=== PATIENT | male | born 1985 ===

== ENCOUNTER 2020-10-23 08:53 | Outpatient (REF) | payer OTHER, SELFPAY ==
[2020-10-23 11:17] LABS: Glucose Urine UA NEG (NEG); Leukocyte Esterase Urine NEG (NEG); Nitrite Urine NEG (NEG); Specific Gravity - Urine 1.025 (1.005-1.025); Urine Blood NEG (NEG); Urine Ketones NEG (NEG); Urine Protein NEG (NEG-TRACE)
[2020-10-23 11:26] LABS: Appearance Urine CLEAR; Color Urine YELLOW
[2020-10-23 12:01] LABS: RBC Urine 0 /HPF (0); WBC Urine 0 /HPF (0-4)
[2020-10-23 12:01] LABS: Alanine Aminotransferase 37 U/L (0-40); Albumin Level 4.9 g/dL (3.5-5.0); Alkaline Phosphatase 63 U/L (39-117); Anion Gap 13 (12-20); Aspartate Amino Transferase 30 U/L (5-37); Bilirubin Total 0.7 mg/dL (0.0-1.0); Blood Urea Nitrogen 16 mg/dL (9-16); Calcium 9.1 mg/dL (8.4-10.2); Carbon Dioxide 27 mmol/L (22-29); Chloride 104 mmol/L (96-108); Cholesterol 198 mg/dL; Estimated Glomerular Filt Rate > 60; Glucose Fasting 90 mg/dL (60-99); HDL Cholesterol 36 mg/dL; LDL Cholesterol Calculated 141 mg/dl; Potassium 4.7 mmol/L (3.3-5.1); Sodium 139 mmol/L (135-145); Total Protein 7.4 g/dL (6.5-8.0); Triglycerides 106 mg/dL
[2020-10-23 12:24] LABS: TSH reflex Free T4 1.53 uIU/mL (0.32-4.0)
== END 2020-10-23 08:54 | disposition home or self-care (01) ==
LOC: HO.HMGCLDS 08:53
PROVIDERS: PCP Nurse Practitioner Family; Visit Provider Nurse Practitioner Family
DX: Z00.00 Encounter for general adult medical examination without abnormal findings (principal)
CPT/HCPCS: 36415; 80053; 80061; 81001; 84443

== ENCOUNTER 2021-07-03 16:50 | Emergency (ER) | payer OTHER, SELFPAY ==
--- NOTE | ~2021-07-03 | CT_ITS ---
EXAMINATION: CT HEAD WITH/WITHOUT CONTRAST CLINICAL INFORMATION: Right-sided facial pain and numbness. COMPARISON: None TECHNIQUE: Contiguous axial imaging was performed from the skull base to vertex before and after the administration of 85 mL of Omnipaque [address] examination was performed using dose optimization techniques as appropriate, variously including the following: *Automated exposure control *Adjustment of mA and/or kV according to patient size (this includes techniques or standardized protocols for targeted exams where dose is matched to indication/reason for exam; i.e. extremities or head) *Use of iterative reconstruction technique DLP: 1506 mGy-cm FINDINGS: No intracranial hemorrhage, tumors or acute infarcts identified. The ventricles and sulci are normal in size and configuration. No abnormal enhancement of the brain parenchyma. Grossly normal intraluminal opacification of the major intrarenal dural sinuses. The orbits and globes are partially included in the image [id number] and demonstrate no abnormalities. No significant opacification of the visualized paranasal sinuses, mastoid air cells and middle ear cavities. CT/CT head/brain wo/w con IMPRESSION: Normal unenhanced and IV contrast-enhanced CT the head.
[2021-07-03 18:34] VITALS: BP 139/90; PULSE 109; RESP 18; TEMP 36.8; O2SAT 98; BMI 32.5
--- NOTE | 2021-07-03 19:34 | ED_ITS ---
HPI - Neuro Symptoms/Deficit General Chief Complaint: Neuro Symptoms/Deficit Stated Complaint: ?Shingles Source: patient Mode of arrival: ambulatory Limitations: no limitations History of Present Illness HPI Narrative: 36-year-old male presents from urgent care after being evaluated for right-sided facial pain and right leg weakness. Stated this pain started approximately 5 days ago and feels quite similar to shingles although he does not have a vesicular rash. He did have shingles approximately 2 months ago on the left side of his back. The pain does not cross the midline is in the middle of his forehead radiates to the right side and involves the eye. Onset (ago): day(s) (5) Location: right face and right leg History of same: No Severity: moderate Quality: tingling and burning Relieving factors: none Context: gradual onset On Anticoagulants: No Associated symptoms: denies other symptoms Treatments Prior to Arrival: none Related Data Previous Rx's Medication Instructions Recorded valacyclovir 1 gram tablet 1,000 mg PO TID 7 Days #21 tab 07/03/21 Allergies Allergy/AdvReac Type Severity Reaction Status Date / Time No Known Allergies Allergy Verified 07/03/21 18:34 Review of Systems Review of Systems: Constitutional: No Fever, No Chills ENT/Mouth: Right-side of facial burning pain, No Ear Pain, No Hoarseness, No sore throat Eyes: Right Eye Pain, No Swelling, No Redness, No Foreign Body Cardiovascular: No Chest Pain, No SOB Respiratory: No Cough, No Dyspnea Gastrointestinal: No Nausea, No Vomiting, No Diarrhea, No abdominal Pain Genitourinary: No Dysuria, No Hematuria Musculoskeletal: No joint pain, No Myalgias, No Joint Swelling Skin: No Skin lacerations, No rash Neuro: Positive right lower extremity Weakness, No Numbness, No Paresthesias, N o Loss of Consciousness, No Dizziness, No Headache Psych: No Anxiety/Panic, No Depression Heme/Lymph: no easy bruising, no Lymphadenopathy Endocrine: No Polyuria, No Polydipsia Yes all other systems are reviewed and are negative [facility] Past Medical History Attestation statement: The following information was validated with the patient. Source: old records reviewed Medical History Shingles Family History Family History Father Diabetes FH: HTN (hypertension) Mother Asthma Social History Social History Alcohol intake: current Alcohol intake frequency: holidays/special occasions only Advance Directives: No Advance Directives Information Provided: Yes Physical Exam Vital Signs: Vital Signs: Last Vital Signs Temp 98.3 F 07/03/21 18:34 Pulse 109 H 07/03/21 18:34 Resp 18 07/03/21 18:34 BP 139/90 H 07/03/21 18:34 Pulse Ox 98 07/03/21 18:34 Body Mass Index 32.5 Appearance: Alert. Oriented X3. No acute distress. Head: Normal external exam. Normocephalic. Atraumatic. No [place] signs noted. No raccoon eyes noted Eyes: PERRLA. EOMI. Conjunctiva and sclera normal. Eyelids normal. ENT: TM's Normal. Pharynx normal. Uvula midline. Moist mucous membranes. No trismus noted. No drooling noted. No muffled voice noted. Neck: Normal inspection. Neck supple. No adenopathy. Thyroid Normal. No meningeal signs. No neck mass noted. CVS: Normal heart rate and rhythm. Heart sound normal. No murmurs noted. Pulses equal to all extremities. Respiratory: No respiratory distress. Painless inspiration. Breath sounds normal. No wheezes/rales/rhonchi noted. Chest nontender. No accessory muscle usage noted or decreased air movement noted. Abdomen: Soft and nontender. Bowel sounds normal in all 4 quadrants. No distention noted. No organomegaly noted. No visible injury noted. Back: No CVA tenderness. Full range of motion noted. Skin: Skin warm and dry. Normal skin color. Normal skin turgor. No rashes/lesions/lacerations noted. Extremities: No lower extremity edema. Extremities exhibit normal range of motion. Extremities nontender. Neuro: cranial nerves 2-12 intact, no focal neural deficits, strength 5/5 to all extremities, No motor deficit. No sensory deficit. Patellar Reflexes normal. Eyes: General: appearance normal, both eyes and all related structures Visual Fall: normal visual fall by confrontation Alignment and Position: alignment normal and position normal Periorbital: periorbital findings normal Eyelids: Yes eyelids normal Conjunctivae: conjunctivae normal Sclerae: sclerae normal Corneas: corneas normal and fluorescein used Pupils: Equal, round and reactive pupils present, Pupils normal by confrontation and Pupil ac commodation reflex normal EOM: EOMs intact bilaterally Direct Ophthalmoscopy: normal light reflex, no photophobia, no papilledema, fundi normal bilaterally and anterior chamber normal Neuro: Cranial nerves: Yes Equal, round and reactive pupils present Course Course Course Narrative: 36-year-old male presents the emergency department for right- sided facial burning pain and right leg weakness. States that his right leg gives out on him. This has been occurring for the past 5 days. NIH stroke scal e performed by this SHEET WRITER while patient was waiting in the emergency department waiting room. Scale was 0. Patient neurovascularly intact, cranial nerve 2-12 intact, gait well balanced well coordinated. Low likelihood of CVA at this time. Patient presents for evaluation after being referred to emergency department by urgent care. Stated that he seen urgent care and they were concerned that he may have shingles on his brain because he does not have a visible vesicular rash. He did have shingles approximately 2 months ago to the left side of his back. Patient negative for [place] Syl[place], trigeminal neuralgia, and giant cell arteritis. 7:30 p.m. I discussed this case with Dr Escalante, patient does not have any acute vision changes, no fluorescein uptake. Retina is intact. Patient will follow-up in the office on Tuesday. CT scan negative for acute findings requiring emergent intervention. Will treat with antiviral, have patient follow-up with primary care physician. Patient verbalized understanding of and agrees to plan of care discharge home. Consultations Consultation #1: Ava Time: 19:30 MDM - Neuro Symptoms/Deficit MDM Narrative Medical decision making narrative: Shingles Differential Diagnosis Differential diagnosis: Likely peripheral neuropathy, cerebrovascular accident and multiple sclerosis Medical Records Attestation: I reviewed the patient's medical records. Lab Data Attestation: I reviewed the patient's lab results. Result diagrams: 07/03/21 20:00 07/03/21 20:00 Labs: Lab Results 07/03/21 07/03/21 07/03/21 Range/Units 20:00 20:00 20:00 WBC 6.0 (4.8-10.8) X10*3/uL RBC 5.47 (4.60-5.80) X10*6/uL Hgb 16.5 (14.0-18.0) g/dl Hct 47.5 (42-52) % MCV 86.8 (80-98) fL MCH 30.2 (27.0-33.0) pg MCHC 34.7 (31.0-36.0) g/dl RDW 12.3 (11.0-16.0) % Plt Count 244 (160-400) X10*3/uL MPV 8.9 L (9.4-12.4) fL Immature Gran % (Auto) 0.2 (0.0-0.4) % Neut % (Auto) 68.1 (45-73) % Lymph % (Auto) 23.7 (20-40) % Potter % (Auto) 7.5 (2-11) % Eos % (Auto) 0.2 (0-4) % Baso % (Auto) 0.3 (0-2) % Lymph # (Auto) 1.4 (1.2-4.9) X10*3/uL Potter # (Auto) 0.5 (0.1-1.2) X10*3/uL Eos # (Auto) 0.0 (0.0-0.4) X10*3/uL Baso # (Auto) 0.0 (0.0-0.2) X10*3/uL Abs Immat Gran (auto) 0.01 (0.00-0.03) X10*3/uL Absolute Neuts (auto) 4.1 (2.0-8.3) X10*3/uL Absolute Nucleated RBC 0.000 (0.0-0.012) X10*3/uL Nucleated RBC % (auto) 0.0 (0.0-0.2) /100WBC ESR 1 (0-15) MM/HR Sodium 142 (135-145) mmol/L Potassium 4.1 (3.3-5.1) mmol/L Chloride 107 (96-108) mmol/L Carbon Dioxide 26 (22-29) mmol/L Anion Gap 13 (12-20) BUN 16 (9-16) mg/dL Creatinine 0.85 (0.5-1.4) mg/dL Estim Creat Clear Calc 151.6 Estimated GFR > 60 Random Glucose 100 (60-115) mg/dL Calcium 9.9 D (8.4-10.2) mg/dL C-Reactive Protein 0.11 (< or = 0.50) mg/dL Imaging Data CT head with and without: Attestation: I personally reviewed and interpreted this imaging study as follows: Radiologist's impression: EXAMINATION: CT HEAD WITH/WITHOUT CONTRAST CLINICAL INFORMATION: Right-sided facial pain and numbness.? COMPARISON: None? ? TECHNIQUE: Contiguous axial imaging was performed from the skull base to vertex before and after the administration of 85 mL of Omnipaque [address] examination was performed using dose optimization techniques as appropriate, variously including the following: *Automated exposure control *Adjustment of mA and/or kV according to patient size (this includes techniques or standardized protocols for targeted exams where dose is matched to indication/reason for exam; i.e. extremities or head) *Use of iterative reconstruction technique DLP: 1506 mGy-cm FINDINGS: No intracranial hemorrhage, tumors or acute infarcts identified. The ventricles and sulci are normal in size and configuration. No abnormal enhancement of the brain parenchyma. Grossly normal intraluminal opacification of the major intrarenal dural sinuses. The orbits and globes are partially included in the image [id number] and demonstrate no abnormalities. No significant opacification of the visualized paranasal sinuses, mastoid air cells and middle ear cavities. CT/CT head/brain wo/w con IMPRESSION: Normal unenhanced and IV contrast-enhanced CT the head.? NIH Stroke Scale Internal: Initial- Upon Arrival Time: 18:00 Level of Consciousness: Alert Level of Consciousness Questions: Answers both questions correctly Level of Consciousness Commands: Performs both tasks correctly Best Gaze: Normal Visual: No visual loss Facial Palsy: Normal Motor Arm (Right): No drift Motor Arm (Left): No drift Motor Leg (Right): No drift Motor Leg (Left): No drift Limb Ataxia: Absent Sensory: Normal Best Language: No aphasia Dysarthia: Normal Extinction and Inattention: No abnormality Score: 0 Discharge Plan Discharge Clinical Impression: Rash and nonspecific skin eruption Shingles Qualifiers: Herpes zoster complications: with ocular involvement Herpes zoster ocular complication detail: unspecified herpes zoster eye disease Qualified Code(s): B02.30 - Zoster ocular disease, unspecified Patient Disposition: Home, Self-Care Instructions: Shingles (ED) Additional Instructions: You were evaluated for unilateral right-sided facial pain with eye involvement. Your pain is suspicious for shingles. You must follow-up with Ophthalmology on Tuesday. If vision gets worse you must present to emergency department that has ophthalmology on-call. Please take Valacyclovir 1000 mg 3 times a day for the next 7 days. Thank you for choosing this emergency department for evaluation. Please follow-up with primary care physician as needed. Return to the emergency department for any new, concerning, or worsening symptoms. Prescriptions: New valacyclovir 1 gram tablet 1,000 mg PO TID 7 Days Qty: 21 RF: 0 Referrals: Bentley Escalante [Physician] - 2 days (Please follow-up on Tuesday.) Interventions: ED Discharge Assessment Last Done: 07/03/21 22:08 Discharge Date/Time: 07/03/21 22:20 Print Language: Lao
[2021-07-03 20:07] LABS: MANUAL DIFF FLAG NO
[2021-07-03 20:08] LABS: Basophils Percent Auto 0.3 % (0-2); Eosinophils Percent Auto 0.2 % (0-4); Hematocrit 47.5 % (42-52); Hemoglobin 16.5 g/dl (14.0-18.0); Imm Gran Abs Auto 0.01 X10*3/uL (0.00-0.03); Imm Gran Pct Auto 0.2 % (0.0-0.4); Lymphocytes Absolute Auto 1.4 X10*3/uL (1.2-4.9); Lymphocytes Percent Auto 23.7 % (20-40); Mean Corpuscular HGB Conc 34.7 g/dl (31.0-36.0); Mean Corpuscular Hemoglobin 30.2 pg (27.0-33.0); Mean Corpuscular Volume 86.8 fL (80-98); Mean Platelet Volume 8.9 fL (9.4-12.4); Monocytes Absolute Auto 0.5 X10*3/uL (0.1-1.2); Monocytes Percent Auto 7.5 % (2-11); Neutrophils Absolute Auto 4.1 X10*3/uL (2.0-8.3); Neutrophils Percent Auto 68.1 % (45-73); Platelet Count 244 X10*3/uL (160-400); Red Blood Count 5.47 X10*6/uL (4.60-5.80); Red Cell Distribution Width 12.3 % (11.0-16.0)
[2021-07-03 20:23] LABS: Anion Gap 13 (12-20); Blood Urea Nitrogen 16 mg/dL (9-16); C Reactive Protein 0.11 mg/dL (< or = 0.50); Calcium 9.9 mg/dL (8.4-10.2); Carbon Dioxide 26 mmol/L (22-29); Chloride 107 mmol/L (96-108); Creatinine Clr Calc Pharmacy 151.6; Estimated Glomerular Filt Rate > 60; Glucose Random 100 mg/dL (60-115); Potassium 4.1 mmol/L (3.3-5.1); Sodium 142 mmol/L (135-145)
[2021-07-03 20:55] LABS: Erythrocyte Sedimentation Rate 1 MM/HR (0-15)
[2021-07-03] MEDS: iohexoL 350 MG/ML 100 ML INFUS..BTL IV (21:05)
[2021-07-03] MEDS: Fluorescein Sodium STRIP 1 STRIP EYE-RIGHT (21:11)
== END 2021-07-03 22:20 | disposition home or self-care (01) ==
PROVIDERS: Nurse Practitioner Family; Emergency Provider Emergency Medicine; PCP Nurse Practitioner Family
DX: B02.30 Zoster ocular disease, unspecified (principal); R21 Rash and other nonspecific skin eruption; R29.700 NIHSS score 0; M54.50 Low back pain, unspecified; R51.9 Headache, unspecified; Z79.899 Other long term (current) drug therapy
CPT/HCPCS: 36415; 70470; 80048; 85025; 85652; 86140; 99284; Q9967

== ENCOUNTER 2021-07-13 08:22 | Outpatient (REF) | payer OTHER, SELFPAY ==
[2021-07-13 11:27] LABS: MANUAL DIFF FLAG NO
[2021-07-13 11:35] LABS: Basophils Percent Auto 0.5 % (0-2); Eosinophils Percent Auto 0.3 % (0-4); Hematocrit 45.8 % (42-52); Hemoglobin 15.5 g/dl (14.0-18.0); Lymphocytes Absolute Auto 1.2 X10*3/uL (1.2-4.9); Lymphocytes Percent Auto 30.2 % (20-40); Mean Corpuscular HGB Conc 33.8 g/dl (31.0-36.0); Mean Corpuscular Hemoglobin 30.1 pg (27.0-33.0); Mean Corpuscular Volume 88.9 fL (80-98); Mean Platelet Volume 9.5 fL (9.4-12.4); Monocytes Absolute Auto 0.2 X10*3/uL (0.1-1.2); Monocytes Percent Auto 5.2 % (2-11); Neutrophils Absolute Auto 2.5 X10*3/uL (2.0-8.3); Neutrophils Percent Auto 63.8 % (45-73); Platelet Count 243 X10*3/uL (160-400); Red Blood Count 5.15 X10*6/uL (4.60-5.80); White Blood Count 3.9 X10*3/uL (4.8-10.8)
[2021-07-13 12:15] LABS: Alanine Aminotransferase 21 U/L (0-40); Albumin Level 4.7 g/dL (3.5-5.0); Alkaline Phosphatase 54 U/L (39-117); Anion Gap 14 (12-20); Aspartate Amino Transferase 22 U/L (5-37); Bilirubin Total 0.7 mg/dL (0.0-1.0); Blood Urea Nitrogen 16 mg/dL (9-16); C Reactive Protein 0.11 mg/dL (< or = 0.50); Calcium 9.5 mg/dL (8.4-10.2); Carbon Dioxide 26 mmol/L (22-29); Chloride 107 mmol/L (96-108); Estimated Glomerular Filt Rate > 60; Glucose Random 103 mg/dL (60-115); Potassium 4.1 mmol/L (3.3-5.1); Sodium 143 mmol/L (135-145)
[2021-07-13 12:16] LABS: TSH reflex Free T4 1.35 uIU/mL (0.32-4.0)
[2021-07-13 13:08] LABS: Erythrocyte Sedimentation Rate 1 MM/HR (0-15)
== END 2021-07-13 08:23 | disposition home or self-care (01) ==
LOC: HO.HMGCLDS 08:22
PROVIDERS: PCP Nurse Practitioner Family; Visit Provider Nurse Practitioner Family
DX: R51.9 Headache, unspecified (principal)
CPT/HCPCS: 36415; 80053; 84443; 85025; 85652; 86140

== ENCOUNTER 2021-10-22 11:37 | Outpatient (REF) | payer OTHER, SELFPAY ==
[2021-10-22 14:11] LABS: Appearance Urine HAZY; Color Urine YELLOW; Glucose Urine UA NEG (NEG); Leukocyte Esterase Urine NEG (NEG); Nitrite Urine NEG (NEG); PH 7.5 (5.0-8.0); Specific Gravity - Urine 1.015 (1.005-1.025); Urine Blood NEG (NEG); Urine Ketones NEG (NEG); Urine Protein TRACE MG/DL (NEG-TRACE)
[2021-10-22 14:28] LABS: Alanine Aminotransferase 28 U/L (0-40); Albumin Level 4.9 g/dL (3.5-5.0); Alkaline Phosphatase 60 U/L (39-117); Anion Gap 12 (12-20); Aspartate Amino Transferase 23 U/L (5-37); Bilirubin Total 0.7 mg/dL (0.0-1.0); Blood Urea Nitrogen 14 mg/dL (9-16); Calcium 9.8 mg/dL (8.4-10.2); Carbon Dioxide 28 mmol/L (22-29); Chloride 105 mmol/L (96-108); Cholesterol 201 mg/dL; Estimated Glomerular Filt Rate > 60; Glucose Fasting 94 mg/dL (60-99); HDL Cholesterol 38 mg/dL; LDL Cholesterol Calculated 147 mg/dl; Potassium 4.5 mmol/L (3.3-5.1); Sodium 140 mmol/L (135-145); Total Protein 7.6 g/dL (6.5-8.0); Triglycerides 81 mg/dL
[2021-10-22 14:36] LABS: TSH reflex Free T4 1.43 uIU/mL (0.32-4.0)
== END 2021-10-22 11:38 | disposition home or self-care (01) ==
LOC: HO.HMGCLDS 11:37
PROVIDERS: Visit Provider Nurse Practitioner Family
DX: Z00.00 Encounter for general adult medical examination without abnormal findings (principal)
CPT/HCPCS: 36415; 80053; 80061; 81003; 84443

== ENCOUNTER 2022-09-07 11:21 | Outpatient (REF) | payer OTHER, SELFPAY ==
[2022-09-07 12:36] LABS: Influenza A PCR POSITIVE (Negative); Influenza B PCR NEGATIVE (Negative); Resp Syncy Virus RNA Qual PCR NEGATIVE (Negative); SARS COV2 PCR INHOUSE NEGATIVE (Negative)
== END 2022-09-07 11:22 | disposition home or self-care (01) ==
LOC: HO.LNP 11:21
PROVIDERS: Visit Provider Nurse Practitioner Family
DX: Z20.822 Contact with and (suspected) exposure to COVID-19 (principal); R09.89 Other specified symptoms and signs involving the circulatory and respiratory systems
CPT/HCPCS: 0241U

== ENCOUNTER 2022-10-26 08:09 | Outpatient (REF) | payer OTHER, SELFPAY ==
[2022-10-26 11:25] LABS: Appearance Urine Clear; Color Urine Yellow; Glucose Urine UA Negative (Negative); Leukocyte Esterase Urine Negative (Negative); Nitrite Urine Negative (Negative); PH 6.5 (5.0-9.0); Specific Gravity - Urine 1.025 (1.005-1.025); Urine Blood Negative (Negative); Urine Ketones Negative (Negative); Urine Protein Negative (Neg-Trace)
[2022-10-26 11:27] LABS: MANUAL DIFF FLAG NO
[2022-10-26 11:34] LABS: Basophils Percent Auto 0.5 % (0-2); Hematocrit 47.9 % (42.0-52.0); Hemoglobin 16.2 g/dl (14.0-18.0); Imm Gran Abs Auto 0.01 X10*3/uL (0.00-0.03); Imm Gran Pct Auto 0.2 % (0.0-0.4); Lymphocytes Absolute Auto 1.4 X10*3/uL (1.2-4.9); Lymphocytes Percent Auto 33.6 % (20-40); Mean Corpuscular HGB Conc 33.8 g/dl (31.0-36.0); Mean Corpuscular Hemoglobin 29.9 pg (27.0-33.0); Mean Corpuscular Volume 88.4 fL (80.0-98.0); Mean Platelet Volume 9.7 fL (9.4-12.4); Monocytes Absolute Auto 0.5 X10*3/uL (0.1-1.2); Monocytes Percent Auto 11.7 % (2-11); Neutrophils Absolute Auto 2.2 x10*3/uL (2.0-8.3); Platelet Count 248 X10*3/uL (160-400); Red Blood Count 5.42 X10*6/uL (4.60-5.80); Red Cell Distribution Width 12.9 % (11.0-16.0); White Blood Count 4.1 X10*3/uL (4.8-10.8)
[2022-10-26 12:10] LABS: Alanine Aminotransferase 42 U/L (0-40); Albumin Level 4.8 g/dL (3.5-5.0); Alkaline Phosphatase 62 U/L (39-117); Anion Gap 16 (12-20); Aspartate Amino Transferase 29 U/L (5-37); Bilirubin Total 0.7 mg/dL (0.0-1.0); Blood Urea Nitrogen 14 mg/dL (9-16); Calcium 9.5 mg/dL (8.4-10.2); Carbon Dioxide 20 mmol/L (22-29); Chloride 109 mmol/L (96-108); Cholesterol 200 mg/dL; Estimated Glomerular Filt Rate > 60; Glucose Fasting 96 mg/dL (60-99); HDL Cholesterol 37 mg/dL; LDL Cholesterol Calculated 138 mg/dl; Potassium 4.1 mmol/L (3.3-5.1); Sodium 141 mmol/L (135-145); TSH reflex Free T4 1.09 uIU/mL (0.32-4.0); Total Protein 7.3 g/dL (6.5-8.0); Triglycerides 126 mg/dL
== END 2022-10-26 08:10 | disposition home or self-care (01) ==
LOC: HO.HMGCLDS 08:09
PROVIDERS: PCP Nurse Practitioner Family; Visit Provider Nurse Practitioner Family
DX: Z00.00 Encounter for general adult medical examination without abnormal findings (principal)
CPT/HCPCS: 36415; 80053; 80061; 81003; 84443; 85025

== ENCOUNTER 2024-08-20 09:00 | Outpatient (AMB) | payer OTHER, SELFPAY ==
--- NOTE | 2024-08-20 09:01 | MHC.PC.OV ---
Vital Signs 08/20/24 09:02 Height 6 ft Weight 276 lb BMI 37.4 BP 128/76 Blood Pressure Location Lt brachial Position Sitting Pulse 72 Pulse Source Pulse Oximeter Pulse Oximetry (%) 98 Intake Visit Reasons: PE Intake Note: pt is here for PE Non Destructive Testing Engineer Required: No Accompanied by: Self / Same As Patient Allergies No Known Allergies Allergy (Verified 08/20/24 09:17) Medication List - Last Reconciled 08/20/24 by KEENA Barcenas No Known Home Meds Tobacco use date assessed: 08/20/24 Dental Screening Dental Screen Date: 08/20/24 Did you have a dental visit in the last 12 months?: Yes Did you have a dental problem in the last 6 months where you did not have access to dental care?: No Was dental information given to patient?: Patient has dentist HPI PE HPI Details History of Present Illness The patient is a 39-year-old male presenting for a routine physical examination. There are no specific complaints or active medical issues reported during the visit. The patient has no family history of any particular cancers except for a family concern where his father is currently experiencing skin cancer, notably on the nose and knee. The patient previously had cystic lesions assessed by a middle school art teacher, and a benign skin tag on the back was removed by his using a non-medical method. The patient denies being on any medications and expresses the desire to maintain a medication-free lifestyle. 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 - Occupational History: Previously employed at [employer], with a decision to leave due to concerns about the job environment. - Substance Use: Reports occasional smoking, typically in social gatherings; denies habitual use. - Family Health: No family history of cancer except for current skin cancer concerns with the father. Review of Systems - Skin: Reports two small cystic lesions on the scrotum without surrounding cellulitis. -no cp, sob, nv, fevers, chills, abd pains, blood in stool constipation/diarrhea Physical Exam General: Cooperative, healthy appearing, comfortable, no acute distress and well developed Orientation: Patient oriented x3 Limitations: No limitations Head: Normal to inspection Ears: Hearing grossly normal bilaterally Nose: Normal external nose present Face and sinus: Normal facial exam Eyes: Appearance normal, both eyes and all related structures Neck: Normal visual inspection and Yes full ROM Respiratory: Normal respiratory effort and able to speak in complete sentences. Clear to auscultation bilaterally Cardiovascular: Regular rate and rhythm. Normal S1 and S2 GI: Normal to inspection. Soft to palpation and nontender Skin: No rashes or lesions noted, except for scrotum with two small pustules/cystic lesions on the inferior aspect. No signs of surrounding cellulitis infection. Neuro: Patient oriented x3 Extremities: Normal to inspection Results Plan - Continue routine health maintenance and preventive care. - Discussed familial skin cancer history; recommended vigilance and regular dermatological evaluations, especially given family history. - The patient should continue using sun protection to mitigate skin cancer risks. Patient was informed and verbally consented to the use of an ambient scribe for clinic note documentation during this visit. Discussion Notes I discussed with the patient the importance of maintaining regular health check-ups as part of preventive care, especially in light of familial skin cancer history. Emphasized the use of sunscreen and other protective measures to help prevent skin-related issues. Review included confirmation of his current good health status due to the lack of medications and significant health complaints. The patient acquainted me with his occupation and lifestyle decisions, contributing to a holistic understanding of his health determinants. Patient Instructions - Schedule regular dermatological evaluations due to family history. - Maintain sunscreen use for preventive skin health. - Continue periodic routine health examinations. - Reach out for any new or concerning symptoms, especially related to skin changes. PFSH Medical History Shingles Surgical History No pertinent past surgical history Family History Father Diabetes FH: HTN (hypertension) Substance use disorder Mother Asthma Social History Housing: House Alcohol intake: current Alcohol intake frequency: holidays/special occasions only Patient Tobacco Use Status: Never used Tobacco e-Cigarette/Vaping Use: Never Used Second Hand Smoke Exposure: No service: No Current occupational status: employed Current occupation: tv production Current occupational exposures/hazards: No Cognitive needs: No Hearing needs: No Vision needs: No Questionnaire PHQ-9 Over the last 2 weeks, how often have you been bothered by any of the following problems? 1. Little interest or pleasure in doing things: not at all 2. Feeling down, depressed, or hopeless: not at all 3. Trouble falling or staying asleep, or sleeping too much: not at all 4. Feeling tired or having little energy: not at all 5. Poor appetite or overeating: not at all 6. Feeling bad about yourself - or that you are a failure or have let yourself or your family down: not at all 7. Trouble concentrating on things, such as reading the newspaper or watching television: not at all 8. Moving or speaking so slowly that other people could have noticed. Or the opposite - being so fidgety or restless that you have been moving around a lot more than usual: not at all 9. Thoughts that you would be better off or of hurting yourself in some way: not at all Total score: 0 Depression Screening Interpretation: Negative Depression Screening Done: Yes 93690 - PHQ-9 Billing: Yes Source: Developed by Drs. Floyd Wayne, Juju Proctor, Grady Contreras and colleagues, with an educational wil from [employer]. Thrive Questionnaire Date Thrive assessed: 08/20/24 I am a: Patient What is your living situation today?: I have a steady place to live Within the past 12 months, did the food you bought not last and you didn't have the money to get more?: I choose not to answer this question Within the past 12 months, did you worry whether your food would run out before you got money to buy more?: I choose not to answer this question Do you have trouble paying for medicines?: I choose not to answer this question Do you have trouble getting transportation to medical appointments?: I choose not to answer this question Do you have trouble paying your heating and electricity bill?: I choose not to answer this question Do you have trouble taking care of your child, family member or friend?: I choose not to answer this question Do you have trouble with day-to-day activities such as bathing, preparing meals, shopping, managing finances, etc.?: I choose not to answer this question Are you currently unemployed and looking for a job?: I choose not to answer this question Are you interested in more education?: I choose not to answer this question Please select the resources that you would like help with: None Currently or been in a relationship where the following occur: I choose not to answer THRIVE Score: 0 AUDIT C Alcohol Use Questionnaire (AUDIT-C) 1. How often do you have a drink containing alcohol?: 2-4 times a month 2. How many drinks containing alcohol do you have on a typical day when you are drinking?: 3 or 4 3. How often do you have six or more drinks on one occasion?: Less than monthly Total Score: 4 Score Reviewed/Action Taken: Yes ISMAEL-7 AMB Questionnaire ISMAEL-7 Date ISMAEL - 7 assessed: 08/20/24 Feeling nervous, anxious, or on edge: 0 = Not at all Not being able to stop or control worryin = Not at all Worrying too much about different things: 0 = Not at all Trouble relaxin = Not at all Being so restless that it is hard to sit still: 0 = Not at all Becoming easily annoyed or irritable: 0 = Not at all Feeling afraid as if something awful might happen: 0 = Not at all Total ISMAEL-7 score (0-4 normal; 5-9 mild; 10-14 moderate; 15-21 severe): 0 Source: Developed by Drs. Floyd Wayne, Juju Proctor, Grady Contreras and colleagues, with an educational wil from [employer]. ISMAEL-7 Assessment Billing ISMAEL-7 Assessment Tool: ISMAEL-7 Assessment 88748 Physical exam (Primary Care) Vital Signs: Last Vital Signs Pulse 72 08/20/24 09:02 BP 128/76 08/20/24 09:02 Pulse Ox 98 08/20/24 09:02 BMI result Body Mass Index 37.4 Tobacco/Smoking Status: Tobacco use Status Tobacco use date assessed 08/20/24 08/20/24 09:05 Patient Tobacco Use Status Never used Tobacco 08/20/24 09:05 e-Cigarette/Vaping Use Never Used 08/20/24 09:05 PHQ-9: PHQ-9 Score PHQ-9: Total score 0 08/20/24 09:05 Depression Screening Interpretation: Negative Thrive Assessment: Date of Thrive Assessment Date Thrive assessed 08/20/24 08/20/24 09:05 Currently or been in a relationship where the following occur: I choose not to answer Coding Level of Care Code Est Pt Prev Care 40-64y(37407) Diagnoses Physical exam Z00.00 Additional Codes ISMAEL-7 Assessment Billing - ISMAEL-7 Assessment Tool: ISMAEL-7 Assessment 02222 ([id number]) PHQ-9 - 20412 - PHQ-9 Billing: Yes ([id number]) Assessment & Plan Assessment & Plan (1) Physical exam: Code(s): Z00.00 - Encounter for general adult medical examination without abnormal findings Category: Medical Plan . Orders: Orders Comprehensive [place]. Panel Fast Today Z00.00 - Encounter for general adult medical examination without abnormal findings TSH reflex Free T4 Today Z00.00 - Encounter for general adult medical examination without abnormal findings Lipid Panel Today Z00.00 - Encounter for general adult medical examination without abnormal findings Complete Blood Count Auto Diff Today Z00.00 - Encounter for general adult medical examination without abnormal findings UA CC w/rflx Micro + Cult Today Z00.00 - Encounter for general adult medical examination without abnormal findings
[2024-08-20 09:02] VITALS: BP 128/76; PULSE 72; O2SAT 98; BMI 37.4
== END 2024-08-20 09:28 | disposition home or self-care (01) ==
PROVIDERS: PCP Nurse Practitioner Family; Visit Provider Nurse Practitioner Family
DX: Z00.00 Encounter for general adult medical examination without abnormal findings (principal)

== ENCOUNTER 2024-08-20 09:00 | Outpatient (REF) | payer OTHER, SELFPAY ==
[2024-08-20 13:19] LABS: MANUAL DIFF FLAG NO
[2024-08-20 13:30] LABS: Basophils Percent Auto 0.5 % (0-2); Eosinophils Percent Auto 0.7 % (0-4); Hematocrit 48.3 % (42.0-52.0); Hemoglobin 16.2 g/dl (14.0-18.0); Imm Gran Abs Auto 0.01 X10*3/uL (0.00-0.03); Imm Gran Pct Auto 0.2 % (0.0-0.4); Lymphocytes Absolute Auto 1.3 X10*3/uL (1.2-4.9); Lymphocytes Percent Auto 29.1 % (20-40); Mean Corpuscular HGB Conc 33.5 g/dl (31.0-36.0); Mean Corpuscular Hemoglobin 30.1 pg (27.0-33.0); Mean Corpuscular Volume 89.8 fL (80.0-98.0); Mean Platelet Volume 9.6 fL (9.4-12.4); Monocytes Absolute Auto 0.4 X10*3/uL (0.1-1.2); Monocytes Percent Auto 9.8 % (2-11); Neutrophils Absolute Auto 2.6 x10*3/uL (2.0-8.3); Neutrophils Percent Auto 59.7 % (45-73); Platelet Count 241 X10*3/uL (160-400); Red Blood Count 5.38 X10*6/uL (4.60-5.80); Red Cell Distribution Width 12.5 % (11.0-16.0); White Blood Count 4.3 X10*3/uL (4.8-10.8)
[2024-08-20 13:55] LABS: Appearance Urine Clear; Color Urine Yellow; Glucose Urine UA Negative (Negative); Leukocyte Esterase Urine Negative (Negative); Nitrite Urine Negative (Negative); Specific Gravity - Urine 1.025 (1.005-1.025); Urine Blood Negative (Negative); Urine Ketones Negative (Negative); Urine Protein Negative (Neg-Trace)
[2024-08-20 14:28] LABS: Alanine Aminotransferase 38 U/L (0-40); Albumin Level 4.9 g/dL (3.5-5.0); Alkaline Phosphatase 69 U/L (39-117); Anion Gap 12 (12-20); Aspartate Amino Transferase 35 U/L (5-37); Bilirubin Total 0.5 mg/dL (0.0-1.0); Blood Urea Nitrogen 12 mg/dL (9-16); Calcium 9.4 mg/dL (8.4-10.2); Carbon Dioxide 27 mmol/L (22-29); Chloride 106 mmol/L (96-108); Cholesterol 185 mg/dL (<200); Estimated Glomerular Filt Rate > 60; Glucose Fasting 98 mg/dL (60-99); HDL Cholesterol 43 mg/dL (>40); LDL Cholesterol Calculated 118 mg/dL (<100); Potassium 4.1 mmol/L (3.3-5.1); Sodium 141 mmol/L (135-145); TSH reflex Free T4 1.05 uIU/mL (0.32-4.0); Total Protein 7.4 g/dL (6.5-8.0); Triglycerides 121 mg/dL (<150)
== END 2024-08-20 09:01 | disposition home or self-care (01) ==
LOC: HO.HMGCLDS 09:00
PROVIDERS: PCP Nurse Practitioner Family; Visit Provider Nurse Practitioner Family
DX: Z00.00 Encounter for general adult medical examination without abnormal findings (principal)
CPT/HCPCS: 36415; 80053; 80061; 81003; 84443; 85025; 96127; 99396

== ENCOUNTER 2024-10-05 08:55 | Outpatient (REF) | payer OTHER, SELFPAY ==
[2024-10-05 10:15] LABS: MANUAL DIFF FLAG NO
[2024-10-05 10:29] LABS: Basophils Percent Auto 0.4 % (0-2); Eosinophils Absolute Auto 0.1 X10*3/uL (0.0-0.4); Eosinophils Percent Auto 1.4 % (0-4); Hematocrit 47.7 % (42.0-52.0); Hemoglobin 16.5 g/dl (14.0-18.0); Imm Gran Abs Auto 0.01 X10*3/uL (0.00-0.03); Imm Gran Pct Auto 0.2 % (0.0-0.4); Lymphocytes Absolute Auto 1.6 X10*3/uL (1.2-4.9); Lymphocytes Percent Auto 31.8 % (20-40); Mean Corpuscular HGB Conc 34.6 g/dl (31.0-36.0); Mean Corpuscular Hemoglobin 30.4 pg (27.0-33.0); Mean Corpuscular Volume 87.8 fL (80.0-98.0); Mean Platelet Volume 9.7 fL (9.4-12.4); Monocytes Absolute Auto 0.6 X10*3/uL (0.1-1.2); Monocytes Percent Auto 11.2 % (2-11); Neutrophils Absolute Auto 2.8 x10*3/uL (2.0-8.3); Platelet Count 264 X10*3/uL (160-400); Red Blood Count 5.43 X10*6/uL (4.60-5.80); Red Cell Distribution Width 12.3 % (11.0-16.0)
== END 2024-10-05 08:56 | disposition home or self-care (01) ==
LOC: HO.HMGCLDS 08:55
PROVIDERS: PCP Nurse Practitioner Family; Visit Provider Nurse Practitioner Family
DX: D72.819 Decreased white blood cell count, unspecified (principal)
CPT/HCPCS: 36415; 85025

== ENCOUNTER 2025-04-01 09:32 | Outpatient (AMB) | payer OTHER, SELFPAY ==
[2025-04-01 09:39] VITALS: BP 124/80; PULSE 100; TEMP 37.1; O2SAT 97; BMI 36.2
--- NOTE | 2025-04-01 09:39 | MHC.OFFWIV ---
Intake Vital Signs 04/01/25 09:39 Height 6 ft Weight 267 lb BMI 36.2 BP 124/80 Blood Pressure Location Rt brachial Position Sitting Pulse 100 Pulse Source Pulse Oximeter Temp 98.7 F Temp Source Oral Pulse Oximetry (%) 97 Oxygen Delivery Method Room Air Intake Visit Reasons: EP-?shingles in rt side of eye, sore throat Intake Note: presents with rash to right eye for 5 days, itch off/on, reports h/o facial shingle. also c/o sore throat and pain swallowing for 1 day Patient Tobacco Use Status: Never used Tobacco Allergies No Known Allergies Allergy (Verified 04/01/25 09:42) Do you need a note to return to daycare/school/sports/work: No HPI HPI Comments History of Present Illness Details History - The patient is a 40-year-old male presenting with a rash near the right eye. - The rash has been present for approximately 7 days, initially presenting with itching and burning sensations. - The patient has a history of shingles, and the current rash resembles previous episodes, though without fluid-filled vesicles. - The rash is located on the right side of the face, near the eye, but does not extend to the eyelid or below the eye. - The patient has applied no specific treatments prior to the visit. - The patient also reports a sore throat that began the previous day, woke him up out of a sleep. - Denes fevers, headache, throat fullness. Physical Exam General: Cooperative, healthy appearing, comfortable and no acute distress Orientation/consciousness: Patient oriented x3 Limitations: No limitations Head: Normal to inspection Ears: Hearing grossly normal bilaterally, external ears normal and TM's normal bilaterally Nose: Normal external nose present, Normal nares present and No nasal discharge present Mouth: Normal oral and palatal mucosa present and moist mucous membranes Throat: Yes tonsils normal, Yes uvula midline. Posterior oropharynx erythema, left sided exudates noted Eyes: Appearance normal, both eyes and all related structures Neck: Normal visual inspection, full ROM, no neck swelling Respiratory: Normal respiratory effort, able to speak in complete sentences, Skin: cluster of raised erythematous pinpoint lesions lateral to right eye. V2 dermatome Neuro: Patient oriented x3 Extremities: Normal to inspection and Yes no clubbing, cyanosis or edema [facility] Medical History Shingles Surgical History No pertinent past surgical history Family History Father Diabetes FH: HTN (hypertension) Substance use disorder Mother Asthma Social History Housing: House Alcohol intake: current Alcohol intake frequency: holidays/special occasions only Patient Tobacco Use Status: Never used Tobacco e-Cigarette/Vaping Use: Never Used Second Hand Smoke Exposure: No service: No Current occupational status: employed Current occupation: tv production Current occupational exposures/hazards: No Cognitive needs: No Hearing needs: No Vision needs: No Review of Systems Const All systems reviewed & are unremarkable except as noted in HPI and below Physical Exam Vital Signs: Last Vital Signs Temp 98.7 F 04/01/25 09:39 Pulse 100 04/01/25 09:39 BP 124/80 04/01/25 09:39 Pulse Ox 97 04/01/25 09:39 Oxygen Delivery Method Room Air 04/01/25 09:39 BMI result Body Mass Index 36.2 Results AMB Rapid Strep AMB Rapid Strep Negative Last Edit by Lorraine Reynolds MA on 04/01/25 10:06 Assessment & Plan Assessment & Plan (1) Shingles: Code(s): B02.9 - Zoster without complications Qualifiers: Herpes zoster complications: without complications Qualified Code(s): B02.9 - Zoster without complications Plan: - Prescribe triamcinolone cream to be applied lightly to the rash twice daily for a few days, avoiding the eye area. - Monitor the rash for improvement; if it does not resolve, follow-up is recommended. - Advise follow-up with an eye doctor if any vision changes occur, given the proximity of the rash to the eye. Patient was informed and verbally consented to the use of an ambient scribe for clinic note documentation during this visit (2) Strep pharyngitis: Code(s): J02.0 - Streptococcal pharyngitis Plan: - Prescribe amoxicillin 500 mg twice daily for 10 days for the sore throat, based on the presence of exudates - negative rapid strep test - 2 points Centor Score, will treat Orders: Orders AMB Rapid Strep Screen Today Z13.9 - Encounter for screening, unspecified Medications: New amoxicillin 500 mg PO Q12H 20 tabs 0RF triamcinolone acetonide 0.1% 1 appl topical BID 30 grams 0RF Coding Level of Care Code Est Pt Level 4 (56536) Diagnoses Herpes zoster without complication B02.9 Herpes zoster complications: without complications Strep pharyngitis J02.0
== END 2025-04-01 10:40 | disposition home or self-care (01) ==
PROVIDERS: PCP Nurse Practitioner Family; Visit Provider Physician Assistant
DX: B02.9 Zoster without complications (principal); J02.0 Streptococcal pharyngitis; Z13.9 Encounter for screening, unspecified

== ENCOUNTER → 2025-04-01 09:32 | Outpatient (BNVA) | payer OTHER, SELFPAY | PROVIDERS: PCP Nurse Practitioner Family; Visit Provider Physician Assistant | DX: B02.9 Zoster without complications (principal); J02.0 Streptococcal pharyngitis | CPT/HCPCS: 87880 ==